=== PATIENT | female | born 1985 | race Caucasian/White ===

== ENCOUNTER 2016-05-18 19:45 | Emergency (ER) | payer BC ==
[~2016-05-18 19:45] MED LIST: DICY1TAB26 PO
[2016-05-18 21:04] VITALS: BP 119/87; PULSE 85; RESP 16; TEMP 99.1; O2SAT 100
--- NOTE | 2016-05-19 01:29 | PD ---
HPI Chief Complaint: Pain: Acute or Chronic Time Seen by Provider: 01:21 Travel History International Travel<30 days: No Contact w/Intl Traveler<30days: No Traveled to known affect area: No History of Present Illness HPI The patient is a 30-year-old female that complains of a sharp pleuritic chest pain on her left chest beginning at 4:30. Occasionally she complains of some radiation of pain to the neck and left shoulder. The pleuritic pain comes on and off. She does not smoke. She has never had a pneumothorax before. She denies any fever. She is not sexually active in over 3 months and cannot be . She denies any hemoptysis. PFSH Past Medical History Cancer: No Diabetes: No Glaucoma: No Hepatitis: No Hiatal Hernia: No Hypertension: No (DR HILL STATES HYPERTENSION, DIET CONTROLLED) Thyroid Disease: No Past Surgical History Abdominal Surgery: No Cardiac Surgery: No Ear Surgery: No Eye Surgery: No Genitourinary Surgery: No Gynecologic Surgery: No Oral Surgery: Yes (WISDOM TEETH) Pacemaker: No Thoracic Surgery: No Tonsillectomy: Yes Other Surgery: No Social History Alcohol Use: Yes (SOCIALLY, WINE WITH DINNER) Tobacco Use: No Substance Use: No Allergies-Medications (Allergen,Severity, Reaction): Coded Allergies: No Known Allergies (Verified , 05/19/16) Reported Meds & Prescriptions Reported Meds & Active Scripts Active No Active Prescriptions or Reported Medications Review of Systems Except as stated in HPI: all other systems reviewed are Neg Physical Exam Narrative GENERAL: Well-nourished, well-developed patient in slight apparent distress with her sharp, pleuritic chest pain. Her vital signs are normal. SKIN: Warm and dry. HEAD: Normocephalic. EYES: No scleral icterus. No injection or drainage. NECK: Supple, trachea midline. No JVD or lymphadenopathy. CARDIOVASCULAR: Regular rate and rhythm without murmurs, gallops, or rubs. RESPIRATORY: Breath sounds equal bilaterally. No accessory muscle use. GASTROINTESTINAL: Abdomen soft, non-tender, nondistended. MUSCULOSKELETAL: No cyanosis, or edema. BACK: Nontender without obvious deformity. No CVA tenderness. Data Data Last Documented VS Vital Signs Date Time Temp Pulse Resp B/P Pulse Ox O2 Delivery O2 Flow Rate FiO2 05/19/16 01:45 72 16 113/72 100 Room Air 05/18/16 21:04 99.1 Orders Chest,Inspiration & Expiration (05/19/16 ) Complete Blood Count With Diff (05/19/16 01:29) D-Dimer (05/19/16 01:29) Labs Laboratory Tests Test 05/19/16 01:50 White Blood Count 8.1 TH/MM3 Red Blood Count 4.13 MIL/MM3 Hemoglobin 13.4 GM/DL Hematocrit 39.4 % Mean Corpuscular Volume 95.5 FL Mean Corpuscular Hemoglobin 32.5 PG Mean Corpuscular Hemoglobin 34.0 % Concent Red Cell Distribution Width 11.2 % Platelet Count 161 TH/MM3 Mean Platelet Volume 9.8 FL Neutrophils (%) (Auto) 62.5 % Lymphocytes (%) (Auto) 30.3 % Monocytes (%) (Auto) 6.0 % Eosinophils (%) (Auto) 0.9 % Basophils (%) (Auto) 0.3 % Neutrophils # (Auto) 5.1 TH/MM3 Lymphocytes # (Auto) 2.4 TH/MM3 Monocytes # (Auto) 0.5 TH/MM3 Eosinophils # (Auto) 0.1 TH/MM3 Basophils # (Auto) 0.0 TH/MM3 CBC Comment DIFF FINAL Differential Comment MDM Medical Decision Making Medical Screen Exam Complete: Yes Emergency Medical Condition: Yes Medical Record Reviewed: Yes Interpretation(s) The chest x-ray is normal. Differential Diagnosis Pneumothorax, pleurisy, pneumonia, pleural effusion Narrative Course The patient appears to have pleurisy. There is no evidence for pneumothorax or the other possibilities as listed above. Plan: The patient will be given 30 of Toradol IV here. Because she has a history of gastroparesis she will be given a prescription for Mobic which, hopefully, she can tolerate. This is 15 mg daily. Diagnosis Primary Impression: Pleurisy Additional Instructions: The Jun is Gen. on your stomach as compared to Motrin. It is one tablet daily. Follow-up with your primary care physician next week. Med/Other Pt SpecificInfo: Prescription(s) given Scripts Meloxicam (Mobic)15 Mg Tab15 Mg PO DAILY #30 TAB Ref 0 Prov:Jadiel Fatima MD 05/19/16 Disposition: 01 DISCHARGE HOME Condition: Stable Jadiel Fatima MD May 19, 2016 01:29
[2016-05-19 01:45] VITALS: BP 113/72; PULSE 72; RESP 16; O2SAT 100
--- NOTE | 2016-05-19 01:53 | RADHPO ---
EXAM DATE/TIME: 05/19/2016 01:35 [facility] COMPARISON: No previous studies available for comparison. INDICATIONS : Chest pain. MEDICAL HISTORY : None. SURGICAL HISTORY : None. ENCOUNTER: Initial ACUITY: 1 day PAIN SCORE: 8/10 LOCATION: Bilateral chest FINDINGS: Frontal views of the chest in inspiration and expiration were performed. The lungs are symmetrically aerated and clear. No evidence of pneumothorax. There is no evidence of mediastinal shift between inspiration and expiration. The cardio-mediastinal contours are unremarkable. Osseous structures are intact. CONCLUSION: 1. No acute cardiopulmonary disease. Lonnie Quarles MD on May 19, 2016 at 1:51 Board Certified Radiologist. This report was verified electronically.
[2016-05-19 02:06] LABS: AUTOMATED NEUTROPHIL # 5.1 TH/MM3 (1.8-7.7); BASOPHIL % 0.3 % (0.0-2.0); EOSINOPHIL # 0.1 TH/MM3 (0-0.4); EOSINOPHIL % 0.9 % (0.0-4.0); HEMATOCRIT 39.4 % (35.0-46.0); HEMO FLAGS DIFF FINAL; LYMPH % 30.3 % (9.0-44.0); LYMPHOCYTE # 2.4 TH/MM3 (1.0-4.8); MEAN CELL VOLUME 95.5 FL (80.0-100.0); MEAN CORPUSCULAR HEMOGLOBIN 32.5 PG (27.0-34.0); NEUT % 62.5 % (16.0-70.0); PLATELET COUNT 161 TH/MM3 (150-450); RED BLOOD COUNT 4.13 MIL/MM3 (4.00-5.30); RED CELL DISTRIBUTION WIDTH 11.2 % (11.6-17.2); WHITE BLOOD COUNT 8.1 TH/MM3 (4.0-11.0)
[2016-05-19] MEDS ORDERED: MOBI15TA PO (02:18)
[2016-05-19 02:25] VITALS: BP 98/75; PULSE 65; RESP 16; O2SAT 100
[2016-05-19] MEDS ORDERED: KETOROLAC TROMETHAMINE 60 MG/2 ML (IM) VIAL IVP ONE (02:30)
== END 2016-05-19 03:10 | disposition home or self-care (01) ==
LOC: PHED 19:45
DX: R09.1 Pleurisy (principal); K31.84 Gastroparesis
CPT/HCPCS: 71020; 85025; 85379; 96374; 99284; J1885

== ENCOUNTER 2017-03-07 12:15 | Emergency (ER) | payer BC ==
[~2017-03-07] VITALS: Ht 167.6 cm; Wt 51.0 kg
[~2017-03-07 12:15] MED LIST changes: -DICY1TAB26 PO; +MOBI15TA PO
[2017-03-07 12:19] VITALS: BP 119/83; PULSE 88; RESP 16; TEMP 97.6; O2SAT 99
--- NOTE | 2017-03-07 12:37 | PD ---
HPI Chief Complaint: Pain: Acute or Chronic Time Seen by Provider: 12:19 Travel History International Travel<30 days: No Contact w/Intl Traveler<30days: No Traveled to known affect area: No History of Present Illness HPI 31yo F with PMH of gastroparesis presents to the ED with c/o chest pain for 2 weeks. States it is intermittent and goes from right shoulder to left arm. Pain is mild, pt does not want any pain medication and said she didnt take any. Associated with sob. Denies any fever, cough, vomiting, abdominal pain, focal weakness. Denies any PE/DVT, OCP use, cocaine or drug use, cig smoking. PFSH Past Medical History Hx Anticoagulant Therapy: No Cancer: No Cardiovascular Problems: Yes (CHOL) High Cholesterol: Yes Diabetes: No Diminished Hearing: No Glaucoma: No Hepatitis: No Hiatal Hernia: No Medical other: Yes (GASTROPARESIS) Respiratory: No Thyroid Disease: No Tetanus Vaccination: Unknown ?: Not : 0 Past Surgical History Abdominal Surgery: No Cardiac Surgery: No Ear Surgery: No Eye Surgery: No Genitourinary Surgery: No Gynecologic Surgery: No Oral Surgery: Yes (WISDOM TEETH) Pacemaker: No Thoracic Surgery: No Tonsillectomy: Yes Other Surgery: No Social History Alcohol Use: Yes (SOCIALLY, WINE WITH DINNER) Tobacco Use: No Substance Use: No Allergies-Medications (Allergen,Severity, Reaction): Coded Allergies: acetaminophen (Verified Allergy, Severe, 03/07/17) hydrocodone (Verified Allergy, Severe, 03/07/17) No Known Allergies (Verified Allergy, Unknown, 03/07/17) Reported Meds & Prescriptions Reported Meds & Active Scripts Active No Active Prescriptions or Reported Medications Review of Systems Except as stated in HPI: all other systems reviewed are Neg Physical Exam Narrative GENERAL: 31yo F not in distress. SKIN: Focused skin assessment warm/dry. HEAD: Atraumatic. Normocephalic. NECK: Trachea midline. No JVD. CARDIOVASCULAR: Regular rate and rhythm. No murmur appreciated. RESPIRATORY: No accessory muscle use. Clear to auscultation. Breath sounds equal bilaterally. CHEST WALL: No rash. Not ttp. GASTROINTESTINAL: Abdomen soft, non-tender, nondistended. MUSCULOSKELETAL: No obvious deformities. No clubbing. No cyanosis. No edema. NEUROLOGICAL: Awake and alert. No obvious cranial nerve deficits. Motor grossly within normal limits. Normal speech. PSYCHIATRIC: Appropriate mood and affect; insight and judgment normal. Data Data Last Documented VS Vital Signs Date Time Temp Pulse Resp B/P (MAP) Pulse Ox O2 Delivery O2 Flow Rate FiO2 03/07/17 13:26 78 18 114/76 (89) 100 Nasal Cannula 2.00 03/07/17 12:19 97.6 Orders Orders Basic Metabolic Panel (Bmp) (03/07/17 12:30) Complete Blood Count With Diff (03/07/17 12:30) Magnesium (Mg) (03/07/17 12:30) Troponin I (03/07/17 12:30) Chest, Single Ap (03/07/17 12:30) Labs Laboratory Tests Test 03/07/17 12:30 White Blood Count 6.8 TH/MM3 Red Blood Count 3.96 MIL/MM3 Hemoglobin 12.6 GM/DL Hematocrit 37.2 % Mean Corpuscular Volume 93.9 FL Mean Corpuscular Hemoglobin 31.8 PG Mean Corpuscular Hemoglobin Concent 33.9 % Red Cell Distribution Width 11.5 % Platelet Count 158 TH/MM3 Mean Platelet Volume 8.8 FL Neutrophils (%) (Auto) 74.3 % Lymphocytes (%) (Auto) 17.7 % Monocytes (%) (Auto) 7.0 % Eosinophils (%) (Auto) 0.7 % Basophils (%) (Auto) 0.3 % Neutrophils # (Auto) 5.1 TH/MM3 Lymphocytes # (Auto) 1.2 TH/MM3 Monocytes # (Auto) 0.5 TH/MM3 Eosinophils # (Auto) 0.0 TH/MM3 Basophils # (Auto) 0.0 TH/MM3 CBC Comment DIFF FINAL Differential Comment Blood Urea Nitrogen 9 MG/DL Creatinine 0.71 MG/DL Random Glucose 91 MG/DL Calcium Level 8.4 MG/DL Magnesium Level 2.1 MG/DL Sodium Level 138 MEQ/L Potassium Level 3.4 MEQ/L Chloride Level 106 MEQ/L Carbon Dioxide Level 25.1 MEQ/L Anion Gap 7 MEQ/L Estimat Glomerular Filtration Rate 95 ML/MIN Troponin I LESS THAN 0.02 NG/ML MDM Medical Decision Making Medical Screen Exam Complete: Yes Emergency Medical Condition: Yes Interpretation(s) EKG: NSR 78bpm. Normal axis. No ST segment elevation or depression. Differential Diagnosis Atypical chest pain vs. anxiety vs. pneumonia Narrative Course 31yo F with atypical chest pain for 2 weeks. Pt went to PMD's office and was sent here. She is well appearing and does not want anything for pain right now. Labs reviewed, no leukocytosis. Troponin negative. CXR showed clear lungs. No PTX. Equivocal finding suggesting possible nondisplaced fracture of posterior lateral right third rib. Pt denies any trauma. Do not think this is cardiac. Return precautions given. Diagnosis Primary Impression: Atypical chest pain Patient Instructions: General Instructions Departure Forms: Tests/Procedures Additional Instructions: Please follow up with your primary care physician in 2-3 days. Return to the ED if symptoms worsen. Med/Other Pt SpecificInfo: No Change to Meds Scripts No Active Prescriptions or Reported Meds Disposition: 01 DISCHARGE HOME Condition: Stable Jazmin Maguire DO Mar 07, 2017 12:37
[2017-03-07 12:45] LABS: AUTOMATED NEUTROPHIL # 5.1 TH/MM3 (1.8-7.7); BASOPHIL % 0.3 % (0.0-2.0); EOSINOPHIL % 0.7 % (0.0-4.0); HEMATOCRIT 37.2 % (35.0-46.0); HEMO FLAGS DIFF FINAL; LYMPH % 17.7 % (9.0-44.0); LYMPHOCYTE # 1.2 TH/MM3 (1.0-4.8); MEAN CELL VOLUME 93.9 FL (80.0-100.0); MEAN CORPUSCULAR HEMOGLOBIN 31.8 PG (27.0-34.0); MEAN CORPUSCULAR HGB CONC 33.9 % (32.0-36.0); NEUT % 74.3 % (16.0-70.0); PLATELET COUNT 158 TH/MM3 (150-450); RED BLOOD COUNT 3.96 MIL/MM3 (4.00-5.30); RED CELL DISTRIBUTION WIDTH 11.5 % (11.6-17.2); WHITE BLOOD COUNT 6.8 TH/MM3 (4.0-11.0)
[2017-03-07 12:48] LABS: CHLORIDE 106 MEQ/L (98-107); POTASSIUM 3.4 MEQ/L (3.5-5.1); SODIUM (NA) 138 MEQ/L (136-145)
--- NOTE | 2017-03-07 12:49 | RADRPT ---
EXAM DATE/TIME: 03/07/2017 12:38 [facility] COMPARISON: CHEST INSPIRATION & EXPIRATION, May 19, 2016, 1:35. INDICATIONS : Chest pain and weakness today. MEDICAL HISTORY : Hypercholesterolemia. SURGICAL HISTORY : None. ENCOUNTER: Initial ACUITY: 1 day PAIN SCORE: 6/10 LOCATION: Bilateral chest FINDINGS: A single view of the chest demonstrates the lungs to be symmetrically aerated without evidence of mas s, infiltrate or effusion. The cardiomediastinal contours are unremarkable. There is questionable di scontinuity of the anterior cortex of the lateral right third rib. A nondisplaced refracture cannot b e excluded. No evidence of pneumothorax.. CONCLUSION: 1. The lungs are clear. No evidence pneumothorax. 2. Equivocal findings suggesting possible nondisplaced fracture of the posterior-lateral right third rib. Joce Estevez MD on March 07, 2017 at 12:46 Board Certified Radiologist. This report was verified electronically.
[2017-03-07 12:51] LABS: ANION GAP 7 MEQ/L (5-15); BICARBONATE 25.1 MEQ/L (21.0-32.0)
[2017-03-07 12:52] LABS: BLOOD UREA NITROGEN 9 MG/DL (7-18); MAGNESIUM 2.1 MG/DL (1.5-2.5)
[2017-03-07 12:55] LABS: GLOMERULAR FILTRATION RATE 95 ML/MIN (>89)
[2017-03-07 13:26] VITALS: BP 114/76; PULSE 78; RESP 18; O2SAT 100
--- NOTE | 2017-03-07 22:04 | EKG ---
Date Performed: 03/07/2017 Time Performed: 12:17:34 PTAGE: 31 years EKG: Sinus rhythm WITH SINUS ARRHYTHMIA INCOMPLETE RIGHT BUNDLE BRANCH BLOCK BORDERLINE ECG NO PREVIOUS TRACING DOCTOR: Claire Tsai Interpretating Date/Time 03/07/2017 22:03:16
== END 2017-03-07 14:20 | disposition home or self-care (01) ==
LOC: PHED 12:15
DX: R07.89 Other chest pain (principal); K31.84 Gastroparesis; I49.8 Other specified cardiac arrhythmias
CPT/HCPCS: 71010; 80048; 83735; 84484; 85025; 93005; 99285